=== PATIENT | female | born 1960 | race Asian ===

== ENCOUNTER 2017-03-02 06:14 | Day surgery (SDC) | payer OTHER ==
[~2017-03-02] VITALS: Ht 160 cm; Wt 72.6 kg
[2017-03-02] MEDS ORDERED: IBUPROFEN 800 MG TAB PO PRN ×2 (07:40→08:45)
[2017-03-02] MEDS ORDERED: ONDANSETRON 4 MG/2 ML VIAL IVP PRN ×2 (07:40→08:45)
[2017-03-02] MEDS ORDERED: MORPHINE SULFATE 4 MG/ML SYR IM/IVP PRN ×2 (07:40→08:45)
[2017-03-02] MEDS ORDERED: ACETAMINOPHEN/CODEINE 300/30MG 1 TAB PO PRN ×2 (07:40→08:45)
[2017-03-02] MEDS ORDERED: HYDR-133 PO (08:02)
[2017-03-02] MEDS ORDERED: PROPOFOL 200 MG/20 ML VIAL IV ONE (08:56)
[2017-03-02] MEDS ORDERED: MIDAZOLAM 2 MG/2 ML VIAL ONE (09:14)
[2017-03-02] MEDS ORDERED: fentaNYL 0.05 MG/ML VIAL ONE (09:14)
[2017-03-02] MEDS ORDERED: METOCLOPRAMIDE 10 MG/2 ML INJ VIAL IVP PRN (09:20)
[2017-03-02] MEDS ORDERED: MIDAZOLAM 2 MG/2 ML VIAL IV ONE (09:20)
[2017-03-02] MEDS ORDERED: MORPHINE SULFATE 4 MG/ML SYR IVP PRN ×2 (09:20)
[2017-03-02] MEDS ORDERED: MORPHINE SULFATE 2 MG/ML SYR IVP PRN (09:20)
== END 2017-03-02 11:20 | disposition home or self-care (01) ==
LOC: MMU 06:14 → MDS 06:14
PROVIDERS: ATTEND Obstetrics & Gynecology
DX: N95.0 Postmenopausal bleeding (principal); D25.9 Leiomyoma of uterus, unspecified; I10 Essential (primary) hypertension; E66.01 Morbid (severe) obesity due to excess calories; E78.5 Hyperlipidemia, unspecified; E03.9 Hypothyroidism, unspecified; Z98.51 Tubal ligation status
CPT/HCPCS: 58120; 71010; 88305; 93005; J2250; J2704; J3010; J7120; Q0092